=== PATIENT | male | born 1945 | race Caucasian/White ===

== ENCOUNTER 2023-07-29 06:33 | Day surgery (SDC) | payer BC, SELFPAY ==
[2023-07-24 08:25] VITALS: BMI 32.3
[2023-07-24 09:20] LABS: APTT 34.4 Sec (23.4-35.0); INR 1.02; PT 13.6 Sec (11.4-14.6)
[2023-07-29] VITALS (12 sets, daily range): BP systolic 107–151; BP diastolic 68–83; BMI 32.3
[2023-07-29 10:31] LABS: Hematocrit 42.5 % (39.0-52.0); Hemoglobin 15.1 g/dL (13.0-18.0); Mean Corp Hgb Conc. 35.5 g/dL (33.0-37.0); Mean Corpuscular Hgb 30.6 pg (27.0-31.0); Mean Platelet Volume 9.7 fL (7.4-10.4); Platelet Count 302 10^3/uL (130-400); Red Blood Cell Count 4.94 10^6/uL (4.70-6.10); Red Cell Dist. Width 12.4 % (11.5-14.5); White Blood Cell Count 8.5 10^3/uL (4.8-10.8)
[2023-07-29 10:58] LABS: ALT (SGPT) 15 U/L (0-50); AST (SGOT) 24 U/L (17-59); Albumin 4.2 g/dl (3.5-5.0); Alkaline Phosphatase 75 U/L (38-126); Blood Urea Nitrogen 17 mg/dl (9-20); Calcium 9.2 mg/dl (8.4-10.2); Carbon Dioxide 26 mmol/L (22-30); Chloride 104 mmol/L (98-107); Estimated Creatinine Clearance 77 ml/min; Glucose 111 mg/dl (70-99); Potassium 4.4 mmol/L (3.5-5.1); Sodium 135 mmol/L (135-145); Total Bilirubin 1.2 mg/dl (0.2-1.3); Total Protein 7.3 g/dl (6.3-8.2); eGFR > 60.00
[2023-07-29] MEDS: FLOMAX 0.400000000000000022 MG PO (14:25)
[2023-07-29] MEDS: DILAUDID 0.25 MG IV (14:31)
--- NOTE | 2023-07-29 15:04 | SUR.PHASEI ---
patient medicated x1 in pacu for rectal discomfort. vss, no overt bleeding. flomax given as ordered. Dr Hall visits in pacu - rectal exam done - no bleeding Okay for discharge to [facility] - patient must void prior to discharge from hospital.
== END 2023-07-29 15:47 | disposition home or self-care (01) ==
LOC: SDS 06:33
PROVIDERS: ATTENDING PHYSICIAN Specialist; FAMILY PHYSICIAN Internal Medicine
DX: N40.0 Benign prostatic hyperplasia without lower urinary tract symptoms (principal); C73 Malignant neoplasm of thyroid gland; C79.89 Secondary malignant neoplasm of other specified sites; K91.840 Postprocedural hemorrhage of a digestive system organ or structure following a digestive system procedure; Y84.8 Other medical procedures as the cause of abnormal reaction of the patient, or of later complication, without mention of misadventure at the time of the procedure; K62.5 Hemorrhage of anus and rectum
CPT/HCPCS: 55700; 49180; 36415; 76998; 80053; 85027; 85610; 85730

== ENCOUNTER 2024-05-15 07:50 | Emergency (ER) | payer BC, SELFPAY ==
[2024-05-15 07:51] VITALS: BP 175/86
[2024-05-15 08:00] VITALS: BMI 29.7
--- NOTE | 2024-05-15 08:21 | ED.GENMED ---
History of Present Illness
General
Chief Complaint: Fall
Source: patient
Time Seen by Provider: 05/15/24 08:00
History of Present Illness
History of Present Illness:
78-year-old male with past medical history of hypertension around 3 PM in his yard onto a grassy surface but sustained a laceration to the right hand/palm, change the dressing this morning and noticed continued bleeding prompting him to come to the
ER today. Patient is left-hand dominant, tetanus vaccine is up-to-date and no other injuries were sustained. Patient has no other concerns
Past History
Past History
ED Past Medical History: Arrthythmia, Cancer (Thyroid) and HTN
ED Past Surgical History: Cardiac and Other
Social History
Tobacco: Non-smoker
Alcohol: Occasional
Drug: None
Personal:
Living: with family
Employment: Retired
Family History
Family History: Other (Noncontributory)
Review of Systems
Review of Systems
All Other Systems: ROS reviewed and negative except as documented in HPI and ROS
Phy Exam
Physical Exam
Physical Exam:
GENERAL: Alert , in no apparent distress
EYE: conjunctiva clear
Head: Normocephalic atraumatic
NECK: Supple,
ENT: mmm.
LUNGS: no acute respiratory distress
NEUROLOGICAL: Alert and oriented
SKIN: Warm and dry, 2.5cm jagged laceration, superficial, no active bleeding. Extends from mid 5th metacarpal to 3rd metacarpal, small contusion surrounding laceration. no ttp
MUSCULOSKELETAL: well perfused.
PSYCH: Normal and appropriate interaction.
Scores
Heart Failure Risk
Heart Failure Risk Score: Not Applicable
Heart Score for Chest Pain Patients
STEMI patient?: Not applicable
Withdrawal Assessment of Alcohol
Withdrawal Assessment Completed?: Not applicable
Course
Vital Signs
Initial and Last Documented VS:
Initial Vital Signs
Temp Pulse Resp BP Pulse Ox
98.5 F 75 18 175/86 95
05/15/24 07:51 05/15/24 07:51 05/15/24 07:51 05/15/24 07:51 05/15/24 07:51
Last Documented Vital Signs
Temp Pulse Resp BP Pulse Ox
98.5 F 71 15 114/69 95
05/15/24 07:51 05/15/24 08:32 05/15/24 08:32 05/15/24 08:32 05/15/24 07:51
Procedures
Laceration Closure
Left Palmar Hand:
Status of Wound: clean
Size of Wound in cm: 2.5
Description of Wound Edges: sharp
Preparation: cleaned with saline
Anesthesia: 1% Lidocaine
Revision/Debridement: routine- no revision
Type of Closure: single layer closure
Skin Closure Material: 5-0 nylon
Number of sutures: 7
Additional information:
Laceration loosely closed given injury occurred approximately 15 hours prior to examination in the ER
MDM/Problems Addressed
MDM/Problems Addressed:
78-year-old male presented to the ER for evaluation of laceration sustained to the palmar surface of his right hand around 3 PM yesterday afternoon. No other injuries sustained. Laceration loosely repaired as above without any difficulty. Patient
advised on wound care. Suture removal in 10 to 12 days. Aware of return precautions to the ER. Otherwise stable for discharge home
*Pulse Oximetry
Patient hypoxic: no
*Critical Care Note
Total Time (30-74mins, 75-104mins- exclusive of procedures): Not Applicable
Data Reviewed
Further Testing Considered But Not Given:
XR of hand discussed however patient declines
ED Attending Note
-
Portions of this chart may have been created with voice recognition software.� Occasional wrong word or��sound alike� substitutions may have occurred due to the inherent limitations of voice recognition software.
Discharge Plan
Departure
Patient Disposition: Home (Routine Discharge)
Date of Disposition: 05/15/24
Time of Disposition: 08:21
Patient with high blood pressure during this ER visit?: Yes
Discharge Problem:
Laceration of right hand
Instructions: Laceration Repair With Stitches (DC)
Prescriptions:
No Action
levothyroxine 175 MCG tablet
150 mcg PO DAILY
tamsulosin 0.4 MG capsule
0.4 mg PO DAILY
hydrochlorothiazide 12.5 MG tablet
12.5 mg PO DAILY
amlodipine 5 mg Tablet
5 mg PO DAILY
propranolol 10 mg Tablet
10 mg PO DAILY
finasteride 5 mg Tablet
5 mg PO DAILY
Activity Restrictions/Additional Instructions:
Suture removal in 10-12 days
Interventions
Interventions:
*Risk Screen - Suicide Last Done: 05/15/24 07:51
*General Assessment Last Done: 05/15/24 07:55
*Neglect/Abuse Screening Last Done: 05/15/24 07:51
ED- Fall Risk Assessment Last Done: 05/15/24 08:05
*ED COVID-19 Vaccine History Last Done: 05/15/24 07:54
*Nursing Disposition Last Done: 05/15/24 08:32
ED-Musculoskeletal Assessment Last Done: 05/15/24 08:00
ED- Neurological Assessment Last Done: 05/15/24 08:00
ED-Skin Assessment Last Done: 05/15/24 08:00
Discharge Date and Time
Print Language: KU[place]I
[2024-05-15 08:32] VITALS: BP 114/69
== END 2024-05-15 08:37 | disposition home or self-care (01) ==
LOC: EMR 07:50
PROVIDERS: EMERGENCY PHYSICIAN Student in an Organized Health Care Education/Training Program; FAMILY PHYSICIAN Internal Medicine
DX: S61.411A Laceration without foreign body of right hand, initial encounter (principal); X58.XXXA Exposure to other specified factors, initial encounter; I10 Essential (primary) hypertension
CPT/HCPCS: 99282; 12001

== ENCOUNTER → 2024-08-02 09:43 | Outpatient (REF) | payer BC, SELFPAY | LOC: REG 09:43 | PROVIDERS: ATTENDING PHYSICIAN Nurse Practitioner Family | DX: M25.511 Pain in right shoulder (principal); M79.641 Pain in right hand | CPT/HCPCS: 73030; 73130 ==

== ENCOUNTER → 2024-08-25 08:06 | Outpatient (REF) | payer BC, SELFPAY | LOC: HWRAD 08:06 | PROVIDERS: ATTENDING PHYSICIAN Internal Medicine | DX: I10 Essential (primary) hypertension (principal); E03.9 Hypothyroidism, unspecified; I44.2 Atrioventricular block, complete; Z95.0 Presence of cardiac pacemaker; R53.83 Other fatigue; R26.9 Unspecified abnormalities of gait and mobility | CPT/HCPCS: 70450 ==

== ENCOUNTER 2025-01-24 13:41 | Emergency (ER) | payer BC, SELFPAY ==
[2025-01-24 13:42] VITALS: BP 138/81
--- NOTE | 2025-01-24 15:06 | ED.MUSCINJ ---
HPI-Injury
<Kurtis Redman MD, Resident - Last Filed: 01/24/25 15:28>
General
Chief Complaint: Fall
Source: patient
Time Seen by Provider: 01/24/25 14:47
History of Present Illness-Injury
Initial Injury comments:
This is a 79-year-old male with history of hypertension, BPH, hypothyroidism presenting in the emergency department after a fall when he was trying to catch his dog and tripped over a garden hose landing on his right shoulder. He did not lose
consciousness, did not hit his head on the ground. Reportedly he had a fall 3 weeks ago when he injured his right shoulder which was recovering. He could not move his right shoulder which prompted to visit the emergency department.
Past History
<Kurtis Redman MD, Resident - Last Filed: 01/24/25 15:28>
Past History
ED Past Medical History: Arrthythmia, Cancer (Thyroid) and HTN
ED Past Surgical History: Cardiac and Other
Social History
Tobacco: Non-smoker
Alcohol: Occasional
Drug: None
Personal:
Living: with family
Employment: Retired
Family History
Family History: Other (Noncontributory)
Musculoskeletal Injury Exam
<Kurtis Redman MD, Resident - Last Filed: 01/24/25 15:28>
Musculoskeletal Injury Exam
Right Shoulder:
Pain with Movement?: Severe
Tender to palpation?: None
Soft tissue swelling?: None
External deformity and angulation?: None
Joint effusion?: None
Contusion?: None
Hematoma-local bleeding into tissue?: None
Strain- Sprain- Tear (Connective tissue injury)?: Other (Possible)
Crepitus with movement?: No
Joint instability?: No
Malalignment/deformity?: No
Range of motion: Limited
Distal skin color and temperature: normal-warm & good color
Capillary Refill: normal
Normal distal neurovascular exam?: Yes
Phy Exam
<Kurtis Redman MD, Resident - Last Filed: 01/24/25 15:28>
Physical Exam
Physical Exam:
no apparant distress. well hydrated
Cardiovascular Exam
Cardiovascular Exam: regular rate/rhythm and no murmur
Pulmonary Exam
Pulmonary Exam: lungs clear and no cough
Injury Course
<Kurtis Redman MD, Resident - Last Filed: 01/24/25 15:28>
Orders/Labs/Results
Orders:
Orders
01/24/25 13:46
Shoulder, Right, Trauma [CR Shoulder, Trauma - Right] Urgent
Comment:
Reason For Exam: pain after fall
01/24/25 15:13
Sling Right-Treatment ONCE
<Bossman Gayle, DO - Last Filed: 01/24/25 15:19>
Orders/Labs/Results
Orders:
Orders
01/24/25 13:46
Shoulder, Right, Trauma [CR Shoulder, Trauma - Right] Urgent
Comment:
Reason For Exam: pain after fall
01/24/25 15:13
Sling Right-Treatment ONCE
<Kurtis Redman MD, Resident - Last Filed: 01/24/25 15:28>
MDM/Problems Addressed
Differential Diagnosis Includes:
Right shoulder strain/sprain vs unlikely fracture
MDM/Problems Addressed:
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 Exam is very limited because of the pain patient does not want to lift his hand. Offered pain medication for example Tylenol patient refused. Patient was provided
with a sling and discussed importance of following up with orthopedic outpatient. Patient and his voices understanding and agree with the plan. Shared decision was made to discharge home and follow-up with Ortho soon. Information was
provided at discharge. Also recommended use of ice to help with inflammation.
Return precaution reviewed.
Chronic conditions affecting care: HTN
<Kurtis Redman MD, Resident - Last Filed: 01/24/25 15:28>
*Pulse Oximetry
SaO2: 96
Oxygen Mode of Delivery: Room air
Patient hypoxic: no
*Critical Care Note
Total Time (30-74mins, 75-104mins- exclusive of procedures): Not Applicable
ED Attending Note
<Kurtis Redman MD, Resident - Last Filed: 01/24/25 15:28>
-
Portions of this chart may have been created with voice recognition software.� Occasional wrong word or��sound alike� substitutions may have occurred due to the inherent limitations of voice recognition software.
<Bossman Gayle DO - Last Filed: 01/24/25 15:19>
ED Attending Note
Patient seen and examined by attending physician: Yes
I performed the substantive portion of visit, reviewed & personally made and approve the management plan that is documented in note by myself or CELE.: Yes
I performed a history and physical exam of patient and discussed management with resident, I reviewed resident's note and agree with documented findings and plan of care.: Yes
ED Attending Note:
79-year-old male presents the ER for evaluation after he fell at home landing on his right shoulder. He reports pain limited to his shoulder only. He did take a Tylenol a few hours ago with some improvement in his pain. No prior history of
orthopedic evaluation for the shoulder. Vital signs reviewed, patient is awake, alert, appears in no acute distress, there is a superficial linear abrasion present over the lateral aspect of the right shoulder, mild diffuse swelling noted on
palpation of right shoulder in comparison to left shoulder, mild diffuse pain on palpation of right shoulder in comparison to left, patient has limited active range of motion in all directions due to discomfort, no overlying crepitus, GCS is 15.
I independently viewed and interpreted x-ray of the right shoulder with the resident physician, showing mild DJD, no fracture, no dislocation.
I discussed with patient and his present at bedside my interpretation of x-ray and treatment of same including sling and need for close outpatient follow-up with orthopedics. I offered patient additional pain reliever which she declined at
current, preferring to take Tylenol when he returns home. He expressed understanding of benefit of use of ice. He had no additional questions at the current time. Will provide sling for discharge.
Discharge Plan
Departure
Patient Disposition: Home (Routine Discharge)
Date of Disposition: 01/24/25
Time of Disposition: 15:17
Patient with high blood pressure during this ER visit?: Yes
Condition: Fair
Discharge Problem:
Right shoulder injury
Instructions: How to Use a Shoulder Sling ED, Shoulder pain - ED discharge instructions, BLOOD PRESSURE
Prescriptions:
No Action
levothyroxine 175 MCG tablet
150 mcg PO DAILY
tamsulosin 0.4 MG capsule
0.4 mg PO DAILY
hydrochlorothiazide 12.5 MG tablet
12.5 mg PO DAILY
amlodipine 5 mg Tablet
5 mg PO DAILY
propranolol 10 mg Tablet
10 mg PO DAILY
finasteride 5 mg Tablet
5 mg PO DAILY
Referrals:
Carlos Ferreira DO [Family Provider, Internal Medicine] - Follow up in 1 week
Ulises Thrasher MD [Active, Orthopedics] - Follow up in 2-3 days
Activity Restrictions/Additional Instructions:
You were seen at [facility] emergency department with concerns of right shoulder pain after a fall. We performed right shoulder x-ray which did not show any obvious fracture. Physical exam did not show any dislocation. Your exam was very
limited due to pain. There is a possibility of a rotator cuff tear. You were given a sling in the ER. Information for an orthopedic has been attached with this paperwork please follow-up with them for additional evaluation recommendations. If
you develop any new or worrisome symptoms please return to the emergency department.
Interventions
Interventions:
*Risk Screen - Suicide Last Done: 01/24/25 13:42
*General Assessment Last Done: 01/24/25 13:42
ED-Musculoskeletal Assessment Last Done: 01/24/25 15:03
ED- Neurological Assessment Last Done: 01/24/25 15:03
ED-Skin Assessment Last Done: 01/24/25 15:03
Discharge Date and Time
Print Language: NEPALESE
== END 2025-01-24 15:38 | disposition home or self-care (01) ==
LOC: EMR 13:41
PROVIDERS: EMERGENCY PHYSICIAN Emergency Medicine; FAMILY PHYSICIAN Internal Medicine
DX: S49.91XA Unspecified injury of right shoulder and upper arm, initial encounter (principal); W18.09XA Striking against other object with subsequent fall, initial encounter; Y93.89 Activity, other specified; I10 Essential (primary) hypertension; E03.9 Hypothyroidism, unspecified; N40.0 Benign prostatic hyperplasia without lower urinary tract symptoms; Z85.850 Personal history of malignant neoplasm of thyroid; Z91.81 History of falling
CPT/HCPCS: 99283; 73030

== ENCOUNTER → 2025-04-05 13:28 | Outpatient (REF) | payer BC, SELFPAY | LOC: MRI 13:28 | PROVIDERS: ATTENDING PHYSICIAN Orthopaedic Surgery; FAMILY PHYSICIAN Internal Medicine | DX: M25.511 Pain in right shoulder (principal) | CPT/HCPCS: 73221; 76014; 76015 ==